=== PATIENT | female | born 1950 | race Two or more races ===

== ENCOUNTER 2017-10-28 08:20 | Outpatient (CLI) | payer OTHER | END 2017-10-28 10:56 | disposition home or self-care (01) | LOC: SONOGRAMA 08:20 | DX: E04.1 Nontoxic single thyroid nodule (principal) ==

== ENCOUNTER 2022-03-23 08:40 | Outpatient (CLI) | payer OTHER | END 2022-03-23 08:42 | disposition home or self-care (01) | LOC: SONOGRAMA 08:40 | PROVIDERS: ATTEND Pathology Anatomic Pathology & Clinical Pathology | DX: E04.1 Nontoxic single thyroid nodule (principal) ==